=== PATIENT | female | born 1985 ===

== ENCOUNTER 2017-03-10 12:09 | Inpatient (IN) | payer MEDICAID ==
[2017-03-10] VITALS (9 sets, daily range): BP systolic 86–117; BP diastolic 59–72; PULSE 120–144; RESP 15–26; O2SAT 96–100
[~2017-03-10] VITALS: Ht 160 cm; Wt 55.3 kg
--- NOTE | 2017-03-10 12:56 | ED.REPORT ---
HPI-Abd Pain F Under 40 Date of Service March 10, 2017 ED Provider: Trip nKox DO 31 year old female with a history of ulcerative colitis presents to the ER complaining of three days of acute on chronic abdominal pain. Symptoms are described as waxing and waning sharp pain. Associates symptoms include diarrhea with jim blood, nausea, vomiting, fatigue, and generalized weakness. Colonoscopy a month ago revealed early colon cancer. She has a follow-up appointment scheduled for 03/17. Nursing Notes Stated Complaint: ABD PAIN,CHILLS Chief Complaint: Female Abdominal Pain Nursing Notes Reviewed: Yes Allergies: Coded Allergies: ibuprofen (Verified Allergy, Severe, Anaphylaxis, 03/10/17) diphenhydramine (Verified Allergy, Intermediate, restless legs, 03/10/17) promethazine (Verified Adverse Reaction, Intermediate, ANXIETY, RESTLESS LEG, 03/10/17) Scheduled Amoxicillin (Amoxicillin) 500 Mg Tablet 500 MG PO TID Azathioprine (Imuran) 50 Mg Tablet 100 MG PO QAM Omeprazole (Omeprazole) 20 Mg Capsule.dr 20 MG PO QAM Scheduled PRN Acetaminophen (Acetaminophen) 500 Mg Tablet 500 MG PO Q6H PRN PRN For Fever Albuterol HFA (Proair HFA) 8.5 Gm Hfa.aer.ad 2 PUFFS INHALATION Q4H PRN PRN For Shortness of Breath Dicyclomine (Dicyclomine) 20 Mg Tablet 40 MG PO QID PRN PRN For GI Cramps Loratadine (Claritin) 10 Mg Capsule 10 MG PO DAILY PRN PRN ALLERGIES General Time Seen by MD: 12:55 Chief Complaint Abdominal pain Hx Obtained From: Patient Arrived By: Walk-in Sudden in Onset?: No Onset Occurred: 3 days ago Symptom Duration: Since onset Location: : Diffuse Quality: Sharp Radiation: : Does not radiate Severity: Current: Moderate Severity: Maximum: Severe Associated with: Reports: Diarrhea, Hematochezia, Nausea, Vomiting Recent Healthcare: Recent doctor visit Similar Sx Previous: Yes Past Medical History Past Medical History Ulcerative colitis Reports: Cancer (early colon cancer) Smoking History Unknown if Ever Smoker Ambulatory Status Independent Review of Systems Constitutional: Reports: Fatigue, Weakness - generalized, Denies: Chills, Fever Respiratory: Denies: Non-productive cough GI: Reports: Abdominal pain, Bloody/tarry stool, Diarrhea, Hematochezia, Nausea , Vomiting, Denies: Hematemesis, Melena Female: Denies: Dysuria Complete sys rev & neg: except as marked. Physical Exam Initial Vital Signs Vital Signs (First) Date Time Temp Pulse Resp B/P Pulse Ox O2 Delivery O2 Flow Rate FiO2 03/10/17 12:14 38.2 144 15 86/61 96 Room Air Initial VS: Reviewed Head / Eyes: Atraumatic, Normocephalic, PERRL Neck: Supple, Non-tender, Full range of motion Extremities: Vascular intact, Neuro intact, No swelling, No tenderness Skin: Warm, Dry, No cyanosis Neurologic: Alert, Oriented, Nonfocal General/Constitutional: Awake, Alert, Well developed Respiratory / Chest: Breath sounds NL, Breath sounds = bilat, No respiratory distress, No rales, No rhonchi, No wheezing Cardiovascular: Regular rhythm, No murmurs Heart Rate / Rhythm: Positive: Tachycardia Abdomen: Soft, No guarding, No rebound Tenderness/Guarding/Rebound: Positive: Tender diffuse Back: Inspection NL, Non-tender, No CVA tenderness Interpretation & Diagnostics Lab Results Interpretation Result Diagram: 03/10/17 1254 03/10/17 1254 Test 03/10/17 12:54 03/10/17 16:27 White Blood Count 5.9th/mm3 (3.8-10.1) Red Blood Count 4.62mil/mm3 (3.90-5.20) Hemoglobin 13.2g/dL (12.0-15.6) Hematocrit 39.8% (35.0-46.0) Mean Corpuscular Volume 86.1fL (81-100) Mean Corpuscular Hemoglobin 28.6pg (27.0-35.0) Mean Corpuscular Hemoglobin Concent 33.2% (32.0-37.0) Red Cell Distribution Width 15.8% (12.3-15.4) Platelet Count 581bil/L (150-400) Neutrophils (%) (Auto) 75.2% (40-74) Lymphocytes (%) (Auto) 14.5% (14-46) Monocytes (%) (Auto) 7.5% (4-12) Eosinophils (%) (Auto) 2.1% (0-5) Basophils (%) (Auto) 0.5% (0-3) Sodium Level 130mEq/L (134-144) Potassium Level 3.5mEq/L (3.5-5.2) Chloride Level 97mEq/L (97-108) Carbon Dioxide Level 15mmol/L (18-29) Blood Urea Nitrogen 8mg/dL (6-20) Creatinine 0.74mg/dL (0.57-1.00) Estimat Glomerular Filtration Rate 131mL/min (>59) Glucose Level 130mg/dL (60-99) Lactic Acid Level 1.0mmol/L (0.4-2.0) Calcium Level 9.0mg/dL (8.5-10.1) Magnesium Level 1.9mg/dL (1.6-2.6) Total Bilirubin 0.2mg/dL (0.0-1.2) Aspartate Amino Transf (AST/SGOT) 20U/L (0-50) Alanine Aminotransferase (ALT/SGPT) 14U/L (0-32) Alkaline Phosphatase 180U/L (25-150) Troponin T < 0.010ug/L (0.0-0.011) Total Protein 8.7g/dL (6.4-8.4) Albumin 3.7g/dL (3.4-5.0) Lipase 10U/L (13-60) Thyroid Stimulating Hormone (TSH) 0.319uIU/mL (0.450-4.500) ECG Interpretation ECG Interpretation: Sinus tachycardia, rate 123 Time: 13:36 Interpreted by: ED physician X-Ray Chest Interpretation Chest Xray Interpretation: IMPRESSION: 1. No acute cardiopulmonary disease process. 2. Nodule projecting over the left lung base likely represents nipple shadow. Recommend standard 2 view of the chest when clinically feasible. Dictated by: Myriam Salguero MD, PhD on 03/10/2017 at 13:27 Approved by: Myriam Salguero MD, PhD on 03/10/2017 at 13:28 View: Portable, 1 view Interpretation / Wet Read by: Interpret - Radiologist CT Abd / Pelvis Interpretation IMPRESSION: 1. Diffuse thickening of the wall of the entire colon with mild surrounding inflammation and fluid contained within the colon is suspicious for colitis. There is also thickening of the terminal ileum wall. These findings are concerning for a possible inflammatory bowel process, such as ulcerative colitis or Crohn's disease. However, clinical correlation to exclude infectious colitis such as pseudomembranous colitis is recommended. 2. No bowel obstruction. 3. Left adnexal/ovarian cyst. Please consider followup pelvic ultrasound in 2-3 months. 4. Numerous subcentimeter retroperitoneal and mesenteric lymph nodes are likely reactive to the infectious/inflammatory process of the bowel. 4. Cholelithiasis. 5. Nonspecific intrahepatic biliary dilatation. This may be further evaluated better with MRCP. Dictated by: Pepe Smith M.D. on 03/10/2017 at 13:08 Approved by: Pepe Smith M.D. on 03/10/2017 at 13:25 Study type: Abdominal CT IV contrast, Abdom CT oral contrast Interpretation / Wet Read by: Interpret - Radiologist Re-Eval/Medical Decision Med Decision/Clinical Course Med Decision/Clinical Course: Septic by parameters with east colitis on CAT scan, broad-spectrum antibiotics initiated. PCR is pending. I spoke with both the on-call gas released at [facility] and the patient's gastrologist who both agree with the plan as above. Patient will be admitted. Re-Evaluation/Progress : Time of Eval: 15:02 Re-Evaluation/Progress Note: Discussed lab and imaging results and need for admission. Patient is amenable to the plan. All other questions addressed. Consultation #1: Referral / Consult Name: Yolanda Mcfarlane MD Consulted With: On-call physician (GI) Call Returned at: 14:53 Consultation #2: Call Returned at: 15:17 Note: Discussed patient case with Dr. Verma, GI. Rule-out c. diff prior to steroids. Don't increase steroids until infection is ruled out. 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 Bradley inquired about blood culture, which was already done. Counseled Regarding: Diagnosis, Lab results, Need for admission Discharge & Departure Primary Impression: Sepsis Additional Impression: Ulcerative colitis Disposition: ADMITTED TO HOSPITAL Discharge Condition All VS Reviewed: Yes Condition: Stable Scribe Attestation Portions of this note were transcribed by [place] Vivas. I, Dr. Knox, personally performed the history, physical exam and medical decision-making; I reviewed and confirmed the accuracy of the information in the transcribed note. Signed by: Arvind Hood, 03/10/2017 and 15:38 Trip Knox DO March 10, 2017 12:56 MONTANA VIVAS March 10, 2017 13:03 Spring Mendoza March 10, 2017 16:46
[2017-03-10] MEDS ORDERED: 0.9% Sodium Chloride 1,000 ML IV ONE ×3 (12:59→14:50)
[2017-03-10 13:07] LABS: BASOPHILS % (AUTO) 0.5 % (0-3); EOSINOPHILS % (AUTO) 2.1 % (0-5); MONOCYTES % (AUTO) 7.5 % (4-12); Mean Corpuscular Hemoglobin 28.6 pg (27.0-35.0); Mean Corpuscular Volume 86.1 fL (81-100); NEUTROPHILS % (AUTO) 75.2 % (40-74); Platelet Count 581 bil/L (150-400)
--- NOTE | 2017-03-10 13:29 | DRSVH ---
PROCEDURE: X-RAY CHEST ONE VIEW, PORTABLE ([id number]) INDICATIONS: vomiting, fever, tachycardia TECHNIQUE: One view of the chest was acquired. COMPARISON: None. FINDINGS: Surgical changes and devices: None. Lungs and pleura: No pleural effusions or pneumothorax. Lungs are clear of acute opacities. Nodular density projects over the left lung base likely represents a nipple shadow; recommend standard 2 vie w chest when clinically feasible.. Mediastinum: Mediastinal contours appear normal. Heart size is normal. Bones and chest wall: No suspicious bony lesions. Overlying soft tissues appear unremarkable. IMPRESSION: 1. No acute cardiopulmonary disease process. 2. Nodule projecting over the left lung base likely represents nipple shadow. Recommend standard 2 vi ew of the chest when clinically feasible. Dictated by: Myriam Salguero MD, PhD on 03/10/2017 at 13:27 Approved by: Myriam Salguero MD, PhD on 03/10/2017 at 13:28
[2017-03-10 13:31] LABS: TROPONIN T < 0.010 ug/L (0.0-0.011)
[2017-03-10 13:37] LABS: Lipase 10 U/L (13-60); Magnesium 1.9 mg/dL (1.6-2.6)
[2017-03-10] MEDS ORDERED: Ondansetron 2 mg/mL 2 mL Inj IVPUSH PRN ×2 (13:40→15:45)
[2017-03-10] MEDS: HYDROmorphone 1 mg/mL Inj IVPUSH PRN ×2 (13:47→17:45)
--- NOTE | 2017-03-10 14:26 | DRSVH ---
PROCEDURE: CT ABDOMEN AND PELVIS WITH CONTRAST ([id number]) INDICATIONS: abd pain, fever, UC TECHNIQUE: After the administration of oral and intravenous contrast, 5 mm thick sections acquired from the diap hragms to the symphysis. 5 mm thick coronal and sagittal reformats were performed. For radiation do se reduction, the following was used: automated exposure control, adjustment of mA and/or kV accordi ng to patient size. COMPARISON: None. FINDINGS: Image quality: Diagnostic ABDOMEN: Lung bases: Lung bases are clear. Heart size is normal. Solid organs: The spleen appears to be absent. Mild intrahepatic biliary dilatation is present. The re is a single calcified gallstone evident within the dependent aspect of the gallbladder. No defini te dilatation of the common bile duct is appreciated. No focal liver lesions are evident. The main portal vein is slightly prominent in size without intraluminal thrombus. The adrenals, pancreas, and kidneys are within normal limits. Peritoneum and bowel: The stomach, duodenum, and remainder of the small bowel loops are nondilated. The proximal colon is fluid-filled, which is unusual. There is moderate thickening of the wall of th e ascending, transverse, and descending colon. Mild edema/inflammation within the adjacent mesentery is incidentally noted. No complete bowel obstruction is identified. Thickening of the terminal ile um wall appears to be present, as well. There is no free fluid, loculated fluid collection or free a ir. Nodes and vessels: Numerous subcentimeter mesenteric and retroperitoneal lymph nodes are incidentally noted. No jim lymphadenopathy is identified. Aorta and inferior vena cava are normal in caliber. Bones: No suspicious osseous lesions or acute fractures are evident. There is straightening of the n ormal lumbar lordosis. PELVIS: Genitourinary: Bladder wall thickness is normal. There is a complex left adnexal cyst identified th at measures up to approximately 3.7 cm in diameter (image 70, series 2). The uterus is not enlarged. Miscellaneous: No inguinal hernias or adenopathy. No free fluid or loculated fluid collection is ev ident. Bones: No suspicious bony lesions. No acute pelvic fractures. IMPRESSION: 1. Diffuse thickening of the wall of the entire colon with mild surrounding inflammation and fluid c ontained within the colon is suspicious for colitis. There is also thickening of the terminal ileum wall. These findings are concerning for a possible inflammatory bowel process, such as ulcerative co litis or Crohn's disease. However, clinical correlation to exclude infectious colitis such as pseudo membranous colitis is recommended. 2. No bowel obstruction. 3. Left adnexal/ovarian cyst. Please consider followup pelvic ultrasound in 2-3 months. 4. Numerous subcentimeter retroperitoneal and mesenteric lymph nodes are likely reactive to the infe ctious/inflammatory process of the bowel. 4. Cholelithiasis. 5. Nonspecific intrahepatic biliary dilatation. This may be further evaluated better with MRCP. Dictated by: Pepe Smith M.D. on 03/10/2017 at 13:08 Approved by: Pepe Smith M.D. on 03/10/2017 at 13:25
[2017-03-10] MEDS ORDERED: Piperacillin-Tazo 3.375 Gm Inj 3.375 GM in Dextrose 5% Minibag Plus 50 ML IV ONE (14:55)
[2017-03-10] MEDS ORDERED: Vancomycin 250 mg Oral Capsule PO ONE (14:55)
[2017-03-10] MEDS ORDERED: 0.9% Sodium Chloride 1,000 ML IV SCH (15:41)
[2017-03-10] MEDS ORDERED: Alum-Mag Hydrox-Simeth 30 mL Suspension PO PRN (15:45)
[2017-03-10] MEDS ORDERED: ALBU8.5H2 INHALATION (16:31)
[2017-03-10] MEDS ORDERED: AZAT50TA6 PO (16:31)
[2017-03-10] MEDS ORDERED: ACET-171 PO (16:31)
[2017-03-10] MEDS ORDERED: DICY20TA10 PO (16:31)
[2017-03-10] MEDS ORDERED: OMEP40CA36 PO (16:31)
[2017-03-10] MEDS ORDERED: AMOX500T2 PO (16:31)
[2017-03-10] MEDS ORDERED: LORA10CA PO (16:36)
[2017-03-10] MEDS ORDERED: OMEP20CA11 PO (16:37)
[2017-03-10 17:12] LABS: APPEARANCE,URINE CLEAR (CLEAR,HAZY); COLOR,URINE YELLOW (YELLOW); OCCULT BLOOD,URINE NEGATIVE (NEGATIVE); PH,URINE 5.5 (5.0-8.0); UROBILINOGEN,URINE NORMAL (NORMAL)
[2017-03-10] MEDS ORDERED: Polyethylene Glycol (PEG) 17 Gm Powder PO PRN (17:55)
[2017-03-10] MEDS: 0.9% Sodium Chloride 1,000 ML IV SCH (17:58)
--- NOTE | 2017-03-10 17:59 | NUR ---
admit pt brought to [facility] from ED. pt complains of ABD pain 7/10 and nausea. Dilaudid and Zofran given. NS and tele started per doc orders.
--- NOTE | 2017-03-10 18:33 | PCM.HPMED ---
Subjective Date of Service March 10, 2017 Primary Provider: Admitting Physician: Brigid Bradley DO Primary Care Physician: [facility] Jazzy Lance Attending Physician: Brigid Bradley DO Admit Status: From the Emergency Department, Full Admit, Admit to Yellow Team, Non-Telemetry Chief Complaint: Rectal bleeding and diarrhea History of Present Illness: This is a 31-year-old female with a very long history of ulcerative colitis diagnosed around age 10 per her report. She presents now with about a week long history of diarrhea. This is in context of several family members having nausea vomiting diarrhea. Less today she has had intermittent rectal bleeding which is now improved in her stool continues to be liquid but is now brown. No fevers or chills. A fair amount of mid epigastric cramping. Some vomiting yesterday. She does feel quite dehydrated, thirsty, and weak. She denies any hematemesis. She was started on Imuran as a new medication about 10 days ago. No history of rectal bleeding. A colonoscopy at [facility] in December indicated some dysplasia and she does have a pending appointment with surgery to talk about options. She is lying depleted with a hypovolemic hyponatremia as well as a metabolic acidosis. Her hematocrit is reasonably normal although she is likely hemoconcentrated. She also has a history of primary sclerosing cholangitis. She also notes a long history of asthma with some recent dyspnea and cough. She does use albuterol when necessary request this now. Review of Systems: No headache visual changes rhinorrhea cough or sore throat. She has had intermittent fevers for last 2 days. Blood cultures were drawn and pending a chest x-ray was negative. She denies any hematuria or dysuria. The ED physician did discuss the case with gastroenterology who recommended no steroids and antibiotics as well as stool PCR. She denies skin rash or lesions. Also reviewed and otherwise negative except as noted in history of present illness Allergies Coded Allergies: ibuprofen (Verified Allergy, Severe, Anaphylaxis, 03/10/17) diphenhydramine (Verified Allergy, Intermediate, restless legs, 03/10/17) promethazine (Verified Adverse Reaction, Intermediate, ANXIETY, RESTLESS LEG, 03/10/17) Home Medications Amoxicillin (Amoxicillin) 500 Mg Tablet 500 MG PO TID Azathioprine (Imuran) 50 Mg Tablet 100 MG PO QAM Omeprazole (Omeprazole) 20 Mg Capsule.dr 20 MG PO QAM Scheduled PRN Acetaminophen (Acetaminophen) 500 Mg Tablet 500 MG PO Q6H PRN PRN For Fever Albuterol HFA (Proair HFA) 8.5 Gm Hfa.aer.ad 2 PUFFS INHALATION Q4H PRN PRN For Shortness of Breath Dicyclomine (Dicyclomine) 20 Mg Tablet 40 MG PO QID PRN PRN For GI Cramps Loratadine (Claritin) 10 Mg Capsule 10 MG PO DAILY PRN PRN ALLERGIES PMH 1. Ulcerative colitis 2. Primary sclerosing cholangitis 3. Asthma Surgical History Colonoscopy Family History Negative for ulcerative colitis Social History Hx Alcohol Use: Yes Hx Substance Use: Yes Hx Tobacco Use: Yes Smoking Status: Current Every Day Smoker, Unknown if Ever Smoker Living Arrangement: with Family Exam Vital Signs Vital Sign - Last Date Time Temp Pulse Resp B/P Pulse Ox O2 Delivery O2 Flow Rate FiO2 03/10/17 17:45 139 03/10/17 17:38 37.8 18 111/64 Room Air 03/10/17 17:10 97 Exam Oriented 3. No distress. Fluent speech. Normal affect. Normal skull. Normal nose and ears. Anicteric sclera, symmetric pupils Oropharynx is unremarkable for being dry., no facial droop. Neck is supple, normal thyroid. No adenopathy. Lungs are clear, normal effort rate. Heart is regular without murmur gallop or rub. Abdomen soft, nondistended or tender. Extremities are free of pedal edema. Good radial and pedal pulses. Skin is free of rash, lesions. No petechiae or ecchymosis. Joints are grossly normal. Cranial nerves are grossly normal. Motor strength is normal in all extremities. Normal muscular tone. Thready rapid pulse, diminished skin turgor. She also has dry oral mucosa. Lab and Diagnostics Result Diagram: 03/10/17 1254 03/10/17 1254 X-Rays, CTs and MRIs Chest x-ray is unremarkable except for a left base nodule. CT of the abdomen and pelvis: IMPRESSION: 1. Diffuse thickening of the wall of the entire colon with mild surrounding inflammation and fluid contained within the colon is suspicious for colitis. There is also thickening of the terminal ileum wall. These findings are concerning for a possible inflammatory bowel process, such as ulcerative colitis or Crohn's disease. However, clinical correlation to exclude infectious colitis such as pseudomembranous colitis is recommended. 2. No bowel obstruction. 3. Left adnexal/ovarian cyst. Please consider followup pelvic ultrasound in 2- 3 months. 4. Numerous subcentimeter retroperitoneal and mesenteric lymph nodes are likely reactive to the infectious/inflammatory process of the bowel. 4. Cholelithiasis. 5. Nonspecific intrahepatic biliary dilatation. This may be further evaluated better with MRCP. Dictated by: Pepe Smith M.D. on 03/10/2017 at 13:08 Approved by: Pepe Smith M.D. on 03/10/2017 at 13:25 Assessment & Plan 1. Diarrhea with evidence of diffuse pancolitis, POA. The plan is empiric antibiotics, Zosyn as well as a stool PCR. 2. Volume depletion, POA. Resuscitation with saline 3. Hypovolemic hyponatremia, POA. IV fluids 4. Metabolic acidosis, POA. Lactic acid is normal. IV fluids and follow. 5. Chronic ulcerative colitis, POA. The plan is as above. GI consultation was initiated in the emergency department. 6. Remote history of methamphetamine abuse, inhalation. Remote history of alcohol abuse, none currently. 7. Primary sclerosing cholangitis, POA. Follow clinically. She is full resuscitation Inpatient status with estimated length of stay of over 2 nights. Pain Evaluation: Adequate Pain Control Resuscitation Status: CPR: Attempt Resuscitation Time spent 45 minutes Donovan Brooks MD March 10, 2017 18:33
[2017-03-10] MEDS: Albuterol 2.5 mg/3 mL Inhalation Solution NEB PRN (20:09)
[2017-03-10] MEDS: HYDROmorphone 0.5 mg/0.5 mL iSecure Syringe IVPUSH PRN (21:46)
[2017-03-10] MEDS: Ondansetron 2 mg/mL 2 mL Inj IVPUSH PRN (21:46)
--- NOTE | 2017-03-10 22:35 | NUR ---
Positive Micro Result/Heart rate Patient's stool PCR resulted positive for Rotavirus. MD paged, new order to place on enteric precautions. Informed MD of patient's heart rate 120-140's, MD was aware and inquired about fluid rate (NS@100 ml/hr) and said to continue the fluids, monitor heart rate. Patient is on telemetry. Will give patient PRN Tylenol for 37.6C temperature.
[2017-03-11] VITALS (10 sets, daily range): BP systolic 96–109; BP diastolic 56–67; PULSE 102–116; RESP 16–18; O2SAT 94–98
[2017-03-11] MEDS: Ondansetron 2 mg/mL 2 mL Inj IVPUSH PRN ×5 (00:24→21:11)
[2017-03-11] MEDS: Piperacillin-Tazo 3.375 Gm Inj 3.375 GM in Dextrose 5% Minibag Plus 50 ML IV SCH ×3 (00:29→16:01)
[2017-03-11] MEDS: Heparin 5,000 Unit/mL Inj SUBQ SCH ×4 (00:29→16:01)
[2017-03-11] MEDS: 0.9% Sodium Chloride 1,000 ML IV SCH ×3 (03:58→23:57)
[2017-03-11] MEDS: HYDROmorphone 0.5 mg/0.5 mL iSecure Syringe IVPUSH PRN ×8 (04:04→23:57)
[2017-03-11] MEDS: Albuterol 2.5 mg/3 mL Inhalation Solution NEB PRN ×2 (04:07→21:25)
[2017-03-11 06:13] LABS: BASOPHILS % (AUTO) 0.4 % (0-3); EOSINOPHILS % (AUTO) 4.1 % (0-5); MONOCYTES % (AUTO) 9.7 % (4-12); Mean Corpuscular Hemoglobin 28.5 pg (27.0-35.0); Mean Corpuscular Volume 86.9 fL (81-100); NEUTROPHILS % (AUTO) 58.9 % (40-74); Platelet Count 541 bil/L (150-400)
--- NOTE | 2017-03-11 09:21 | NUR ---
SW- Screening Note Data: Pt is a 31 y/o female admitted 03/10/17 for ulcerative colitis flair, sepsis. Per H&P. Pt's insurance is [facility] Medicaid and PCP is [facility]. EMR reviewed. Pt's readmit risk score is 2 - no risk. SW met with pt at bedside to discuss discharge plan. Pt resides at home in [place] with her boyfriend and his family. She is independent with ADL's and does not drive. Pt has not completed DPOA/Advanced Care Directive paperwork and SW provided info to review and complete. Pt acknowledged she is a regular smoker and SW offered resources on smoking cessation, pt accepted. Pt has history of methamphetamine and alcohol use but denies current use. Pt likely to discharge home via boyfriend when medically stable. No needs assessed. SW will continue to follow for needs. Assessment: Pt who is independent at baseline Plan: Pt likely to discharge home via POV when medically ready, no needs assessed. SW will continue to follow. [facility]
[2017-03-11] MEDS ORDERED: Potassium Chloride 20 mEq SR Tablet PO ONE (09:40)
--- NOTE | 2017-03-11 15:03 | PCM.CHPMED ---
Subjective Date of Service: March 11, 2017 Primary Physician: Admitting Physician: Donovan Brooks MD Primary Care Physician: [facility] Attending Physician: Brigid Bradley DO Chief Complaint: Chief Complaint: Rectal bleeding with nausea and vomiting History of Present Illness: 31-year-old female who was diagnosed with ulcerative colitis while a teenager with history of it being treated with intermittent prednisone and mesalamine who was recently started on azathioprine by her music professionals at the [facility] Dr Verma. She also reports that she has early colon cancer and has been scheduled to see colorectal surgery at the [facility]. She reportS that she has been in her usual state of health up until day of admission when she began having non bloody diarrhea and worsening of chronic abdominal pain. In the ER she tachycardic and hypotensive and therefore admitted to the hospital. She was started empirically on broad spectrum antibiotics and cultured. Stool studies were positive for rotavirus. Blood cultures are pending. Since admission she states she feels better, but still with watery diarrhea and abdominal pain that is more than here chronic abdominal pain. She states that all the kids that family have been sick with diarrhea. Patient states that the pain that she has had in her belly is consistent with her ulcerative colitis. Patient says that her symptoms have improved although there is still diarrhea.. Patient was seen to be tachycardic with borderline hypotension in the emergency department but this seems to have resolved with fluid resuscitation. Patient is usually seen at [facility] in [place] with her GI doctor, Dr. Verma, caring for her there. Patient's labs are reviewed currently no leukocytosis although there is a mild drop in the patient's hemoglobin; patient was hyponatremic this is resolved as currently hypokalemic. TSH is low at 0.319. Patient has a mild elevation alkaline phosphatase that resolved today Review of Systems: See history of present illness PMH Past Medical History Ulcerative colitis sclerosing cholangitis Asthma Hx Any Other Health Problems?: YesHx Diabetes: No Surgical History Colonoscopy Home Medications Imuran 100 mg by mouth every morning Dicyclomine 20 mg by mouth 4 times a day when necessary Loratadine 10 mg by mouth daily when necessary Allergies: Coded Allergies: ibuprofen (Verified Allergy, Severe, Anaphylaxis, 03/10/17) diphenhydramine (Verified Allergy, Intermediate, restless legs, 03/10/17) promethazine (Verified Adverse Reaction, Intermediate, ANXIETY, RESTLESS LEG, 03/10/17) Social History Hx Alcohol Use: NoHx Substance Use: NoHx Tobacco Use: Yes Smoking Status: Current Every Day Smoker Unknown if Ever Smoker Living Arrangement: with Family Exam Vital Signs Vital Sign - Last Date Time Temp Pulse Resp B/P Pulse Ox O2 Delivery O2 Flow Rate FiO2 03/11/17 13:56 36.6 102 16 102/66 96 Room Air Intake and Output 03/10/17 03/10/17 03/11/17 Cumulative From/Thru 15:00 23:00 07:00 03/10/17 12:14 - 03/11/17 04:56 Intake Total 3000 ml 1788 ml 4788 ml Balance 3000 ml 1788 ml 4788 ml Intake Oral 750 ml 750 ml IV Total 3000 ml 1038 ml 4038 ml # Voids 2 2 # Bowel Movements 3 3 General: Alert, Oriented X3, No Acute Distress Mouth: Mucous Membr Moist/[place] Chest & Lungs: Chest Wall Normal, Clear to auscultation & percussion Cardiovascular: Exam Unremarkable, Regular Rate/Rhythm Abdomen: Tender (mild epigastric), Non-distended Extremities: No cyanosis/clubbing/edma bilat Neurological: Grossly Neurologically Intact Lab and Diagnostics Result Diagram: 03/11/17 0550 03/11/17 0550 Assessment & Plan Assessment 31-year-old female history of ulcerative colitis presented with some mild hematochezia and a small decrease in her hemoglobin that could be explained with fluid resuscitation. Patient states her nausea and vomiting are gone but she still has low-grade diarrhea with possible low amounts of hematochezia. Imuran currently on hold. PCR of the stool showed rotavirus which helps explain this episode, especially since on many of her close contacts also have diarrhea. Patient is currently on Zosyn and we await the blood culture results. As the patient has improved and we have an identified source for the diarrhea, should the blood cultures returned negative recommend restarting Imuran. From a GI standpoint, once the patient feels she is ready to leave she can follow-up with her GI specialist in [place]. Thank you for allowing us to participate in the care of this patient Problems: Pain Evaluation: Adequate Pain Control Resuscitation Status: CPR: Attempt Resuscitation Attending Statement Pt seen and examined agree with broad spectrum antibiotics until blood cultures are negative continue supportive care with IV fluids and clear liquids as tolerated. restart azathioprine once cultures negative. I believe the changes seen in CT are likely present for sometime as she reports recently starting medications for UC and prior to that not continuously taking any meds for treatment. she needs to keep appointment with surgery in [place] and follow up with her GI MD at [place]. Dewayne Huang DO March 11, 2017 15:03 Yolanda Mcfarlane MD March 11, 2017 16:26
[2017-03-11] MEDS ORDERED: Pantoprazole 20 mg ER24 Tablet PO ONE (19:45)
[2017-03-11] MEDS: Pantoprazole 20 mg ER24 Tablet PO SCH (19:55)
--- NOTE | 2017-03-11 22:39 | PCM.PNMED ---
Subjective Date of Service March 11, 2017 Subjective The patient states that her pain is much better she describes it as a generic over her umbilicus pain. Tolerating diet. She states she has had several bowel movements today. 2 of her children had diarrhea and she feels that is how she got it. Exam Vital Signs Vital Sign - Last Date Time Temp Pulse Resp B/P Pulse Ox O2 Delivery O2 Flow Rate FiO2 03/11/17 04:56 36.6 105 16 96/59 96 Room Air Intake and Output 03/10/17 03/10/17 03/11/17 Cumulative From/Thru 15:00 23:00 07:00 03/10/17 12:14 - 03/11/17 04:56 Intake Total 3000 ml 1788 ml 4788 ml Balance 3000 ml 1788 ml 4788 ml Intake Oral 750 ml 750 ml IV Total 3000 ml 1038 ml 4038 ml # Voids 2 2 # Bowel Movements 3 3 Exam Gen.: No acute distress sitting up in bed HEENT: Normocephalic, atraumatic Heart: Regular rate and rhythm no S3-S4 sounds Lungs: Clear to auscultation no crackles or wheezes Abdomen: Nondistended soft, normal bowel sounds, very mild central tenderness over the lower quadrants and also periumbilical Extremities: Negative edema Psych: Negative for anxiety Neuro: No focal deficits IVs and Medications IV Fluids 100 mL per hour normal saline Medications Reviewed: Medications were reviewed in detail Lab and Diagnostics Result Diagram: 03/11/17 0550 03/10/17 1254 X-Rays, CTs and MRIs Chest x-ray is unremarkable except for a left base nodule. CT of the abdomen and pelvis: IMPRESSION: 1. Diffuse thickening of the wall of the entire colon with mild surrounding inflammation and fluid contained within the colon is suspicious for colitis. There is also thickening of the terminal ileum wall. These findings are concerning for a possible inflammatory bowel process, such as ulcerative colitis or Crohn's disease. However, clinical correlation to exclude infectious colitis such as pseudomembranous colitis is recommended. 2. No bowel obstruction. 3. Left adnexal/ovarian cyst. Please consider followup pelvic ultrasound in 2- 3 months. 4. Numerous subcentimeter retroperitoneal and mesenteric lymph nodes are likely reactive to the infectious/inflammatory process of the bowel. 4. Cholelithiasis. 5. Nonspecific intrahepatic biliary dilatation. This may be further evaluated better with MRCP. Dictated by: Pepe Smith M.D. on 03/10/2017 at 13:08 Approved by: Pepe Smith M.D. on 03/10/2017 at 13:25 Assessment & Plan 1. Diarrhea with evidence of diffuse pancolitis, POA. The plan is empiric antibiotics, Zosyn as well as a stool PCR. -- Stool PCR showed rotavirus as the cause of her diarrhea -- Conservative symptomatic treatment -- Continue IV fluids 2. Volume depletion, POA. Resuscitation with saline: We will continue IV fluids 3. Hypovolemic hyponatremia, POA. We will continue IV fluids 4. Metabolic acidosis, POA. Lactic acid is normal. IV fluids and follow. 5. Chronic ulcerative colitis, POA. The plan is as above. GI consultation was initiated in the emergency department. They recommended no steroids, they recommended Zosyn until blood cultures and negative. Hold Imuran until blood cultures are negative 6. Remote history of methamphetamine abuse, inhalation. Remote history of alcohol abuse, none currently. 7. Primary sclerosing cholangitis, POA. Follow clinically.: Her home medication Imuran was restarted 8. GERD: Medication omeprazole replaced by pantoprazole 9. Allergies: Loratadine home medications She is full resuscitation Inpatient status with estimated length of stay of over 2 nights. Pain Evaluation: Adequate Pain Control Resuscitation Status: CPR: Attempt Resuscitation Time spent 25 minutes Yarelis Estes DO March 11, 2017 06:43
[2017-03-12] VITALS (7 sets, daily range): BP systolic 103–110; BP diastolic 64–73; PULSE 95–111; RESP 16–20; O2SAT 94–98
[2017-03-12] MEDS: Piperacillin-Tazo 3.375 Gm Inj 3.375 GM in Dextrose 5% Minibag Plus 50 ML IV SCH ×3 (00:30→16:04)
[2017-03-12] MEDS: Heparin 5,000 Unit/mL Inj SUBQ SCH ×3 (00:30→15:54)
[2017-03-12] MEDS: Ondansetron 2 mg/mL 2 mL Inj IVPUSH PRN ×4 (03:50→21:25)
[2017-03-12] MEDS: HYDROmorphone 0.5 mg/0.5 mL iSecure Syringe IVPUSH PRN ×3 (03:50→09:48)
--- NOTE | 2017-03-12 04:04 | NUR ---
PO intake Patient ate mashed potatoes that her visitor brought in around HS. Reported to be tolerating solids well, but then reported around midnight that she threw up some of her dinner. Encouraged patient to take it slow with PO intake-agreeable.
[2017-03-12 07:02] LABS: Magnesium 1.9 mg/dL (1.6-2.6)
[2017-03-12] MEDS: Pantoprazole 20 mg ER24 Tablet PO SCH (07:31)
[2017-03-12] MEDS: 0.9% Sodium Chloride 1,000 ML IV SCH ×2 (09:43→20:59)
--- NOTE | 2017-03-12 11:54 | PCM.PNMED ---
Subjective Date of Service March 12, 2017 Subjective Patient states that she was given amoxicillin for dental infection. She took 4 doses, does not know what the total courses. States she had diarrhea 5 or 6 times. She sees little blood spots mostly green. Dizziness is better but pain is shifted from RU Q/epigastrium to also lower abdomen. No urinary sxs. one time fever last night at 8pm. Later in the day she complains of more blood in her stool but nothing that felt that particularly filled up the toilet. States that she feels like how she feels when she gets the flareups of UC Exam Vital Signs Vital Sign - Last Date Time Temp Pulse Resp B/P Pulse Ox O2 Delivery O2 Flow Rate FiO2 03/12/17 08:52 37.0 103 18 106/71 97 Room Air Intake and Output 03/11/17 03/11/17 03/12/17 Cumulative From/Thru 14:59 22:59 06:59 03/10/17 12:14 - 03/12/17 03:53 Intake Total 3682 ml 918 ml 9388 ml Output Total 3500 ml 3500 ml Balance 182 ml 918 ml 5888 ml Intake Oral 2250 ml 3000 ml IV Total 1432 ml 918 ml 6388 ml Output Urine Total 500 ml 500 ml Stool Total 3000 ml 3000 ml # Voids 2 # Bowel Movements 3 Exam Gen.: No acute distress sitting up in bed HEENT: Normocephalic, atraumatic Heart: Regular rate and rhythm no S3-S4 sounds Lungs: Clear to auscultation no crackles or wheezes Abdomen: Nondistended soft, normal bowel sounds, very mild central tenderness over the lower quadrants and also periumbilical Extremities: Negative edema Psych: Negative for anxiety Neuro: No focal deficits IVs and Medications IV Fluids Normal 100 mL/h Medications Reviewed: Medications were reviewed in detail Lab and Diagnostics Result Diagram: 03/11/17 0550 03/12/17 0607 X-Rays, CTs and MRIs Chest x-ray is unremarkable except for a left base nodule. CT of the abdomen and pelvis: IMPRESSION: 1. Diffuse thickening of the wall of the entire colon with mild surrounding inflammation and fluid contained within the colon is suspicious for colitis. There is also thickening of the terminal ileum wall. These findings are concerning for a possible inflammatory bowel process, such as ulcerative colitis or Crohn's disease. However, clinical correlation to exclude infectious colitis such as pseudomembranous colitis is recommended. 2. No bowel obstruction. 3. Left adnexal/ovarian cyst. Please consider followup pelvic ultrasound in 2- 3 months. 4. Numerous subcentimeter retroperitoneal and mesenteric lymph nodes are likely reactive to the infectious/inflammatory process of the bowel. 4. Cholelithiasis. 5. Nonspecific intrahepatic biliary dilatation. This may be further evaluated better with MRCP. Dictated by: Pepe Smith M.D. on 03/10/2017 at 13:08 Approved by: Pepe Smith M.D. on 03/10/2017 at 13:25 Assessment & Plan 1. Diarrhea with evidence of diffuse pancolitis, POA. The plan is empiric antibiotics, Zosyn as well as a stool PCR. -- Stool PCR showed rotavirus as the cause of her diarrhea -- Conservative symptomatic treatment -- Continue IV fluids 100 cc/hr -- She may have dicyclomine 2. Ulcerative colitis flareup: -- As her blood cultures are negative to date, Imuran was started on 03/11. Discussed the case with both Dr. Hobbs local GI specialist and patient's GI specialist Dr. Verma at [facility]. They both agree on starting steroids at this time. Solu-Medrol 20 mg every 8 is ordered -- Every 4 hours H&H checks to make sure she is hemodynamically stable 2. Volume depletion, POA. Resuscitation with saline: We will continue IV fluids 3. Hypovolemic hyponatremia, POA. We will continue IV fluids 4. Metabolic acidosis, POA. Lactic acid is normal. IV fluids and follow. 5. Chronic ulcerative colitis, POA. The plan is as above. GI consultation was initiated in the emergency department. They initially recommended no steroids, they recommended Zosyn until blood cultures and negative. Hold Imuran until blood cultures are negative. -- May be able to discontinue antibiotics at this point -- Her GI specialist Dr. Verma says that once her abdominal pain is under control she usually gets discharged. 6. Remote history of methamphetamine abuse, inhalation. Remote history of alcohol abuse, none currently. 7. Primary sclerosing cholangitis, POA. Follow clinically.: Her home medication Imuran was restarted 8. GERD: Medication omeprazole replaced by pantoprazole 9. 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 Verma says that patient is expected to undergo a colectomy for this : She has been noncompliant with visits to his office to some extent. She is full resuscitation Inpatient status with estimated length of stay of over 2 nights. Patient may be able to discharge home in a day or 2 once her use UC flareup and diarrhea under control Pain Evaluation: Adequate Pain Control Resuscitation Status: CPR: Attempt Resuscitation Time spent 30 min Yarelis Estes DO March 12, 2017 11:54
[2017-03-12] MEDS: Albuterol 2.5 mg/3 mL Inhalation Solution NEB PRN (12:46)
--- NOTE | 2017-03-12 12:56 | NUR ---
BS clear, no wheezing,diminished in bases. Addendum: 03/12/17 at 1257 by MAYUR MISHRA [facility] Amended: Links added.
--- NOTE | 2017-03-12 15:29 | NUR ---
red stool pt states that her diarrhea is now red and foamy. This RN will notify MD and wait for orders.
[2017-03-12] MEDS: MethylprednisoLONE Sodium Succinate 40 mg/mL Inj IVPUSH SCH (16:10)
[2017-03-13] MEDS: Heparin 5,000 Unit/mL Inj SUBQ SCH ×3 (00:30→16:30)
[2017-03-13] MEDS: Piperacillin-Tazo 3.375 Gm Inj 3.375 GM in Dextrose 5% Minibag Plus 50 ML IV SCH ×3 (00:37→16:56)
[2017-03-13] MEDS: MethylprednisoLONE Sodium Succinate 40 mg/mL Inj IVPUSH SCH ×3 (00:37→16:57)
[2017-03-13] MEDS: Ondansetron 2 mg/mL 2 mL Inj IVPUSH PRN ×2 (03:12→14:44)
--- NOTE | 2017-03-13 03:20 | NUR ---
NOC shift Patient has reported continual diarrhea, yellow/brown in color, denies seeing any more blood in stool. Intermittent nausea, no emesis. Reported that she tolerated her dinner of salmon and rice. Snacking on crackers and ice chips overnight. Two doses of PRN Morphine given for pain of 6-7/10, effective. Vital signs stable. Patient is using call light for needs, calm and cooperative with care. Intentional rounding in place.
[2017-03-13 04:47] VITALS: BP 95/52; PULSE 74; RESP 18; O2SAT 97
[2017-03-13] MEDS: 0.9% Sodium Chloride 1,000 ML IV SCH ×2 (06:44→15:51)
[2017-03-13] MEDS: Pantoprazole 20 mg ER24 Tablet PO SCH (08:49)
[2017-03-13 09:24] VITALS: RESP 20; O2SAT 97
--- NOTE | 2017-03-13 10:20 | NUR ---
Social Work: Readiness for d/c Data: Pt is on day 3 of hospitalization. EMR reviewed, pt discussed in rounds. states pt likely ready for d/c tomorrow. No further d/c planning needs at this time. TOWER ERECTOR will continue to follow if needs arise. Assessment: Pt who is independent at baseline. Plan: Pt will d/c home via POV when medically stable. No further d/c planning needs at this time. TOWER ERECTOR will continue to follow if needs arise. INGE Ayoub
--- NOTE | 2017-03-13 10:36 | PCM.PNMED ---
Subjective Date of Service March 13, 2017 Subjective GI progress note 31-year-old female history of ulcerative colitis who presents with hematochezia and abdominal pain with confirmed rotavirus infection. Blood cultures initially negative and patient was restarted on Imuran and Solu-Medrol for UC flare. Patient states that her symptoms are greatly resolved, still having diarrhea without blood, and having nausea but no vomiting. All other review of systems is negative. Exam Vital Signs Vital Sign - Last Date Time Temp Pulse Resp B/P Pulse Ox O2 Delivery O2 Flow Rate FiO2 03/13/17 09:24 20 97 Room Air 03/13/17 04:47 36.9 74 95/52 Intake and Output 03/12/17 03/12/17 03/13/17 Cumulative From/Thru 15:00 23:00 07:00 03/10/17 12:14 - 03/13/17 03:14 Intake Total 1200 ml 2246 ml 857 ml 95101 ml Output Total 3500 ml Balance 1200 ml 2246 ml 857 ml 79165 ml Intake Oral 1200 ml 972 ml 5172 ml IV Total 1274 ml 857 ml 8519 ml Output Urine Total 500 ml Stool Total 3000 ml # Voids 5 4 11 # Bowel Movements 5 4 12 Exam General: Alert, Oriented X3, No Acute Distress Mouth: Mucous Membr Moist/[place] Chest & Lungs: Chest Wall Normal, Clear to auscultation & percussion Cardiovascular: Exam Unremarkable, Regular Rate/Rhythm Abdomen: mild epigastric, Non-distended Extremities: No cyanosis/clubbing/edma bilat Neurological: Grossly Neurologically Intact Lab and Diagnostics Result Diagram: 03/13/17 0810 03/12/17 0607 X-Rays, CTs and MRIs Chest x-ray is unremarkable except for a left base nodule. CT of the abdomen and pelvis: IMPRESSION: 1. Diffuse thickening of the wall of the entire colon with mild surrounding inflammation and fluid contained within the colon is suspicious for colitis. There is also thickening of the terminal ileum wall. These findings are concerning for a possible inflammatory bowel process, such as ulcerative colitis or Crohn's disease. However, clinical correlation to exclude infectious colitis such as pseudomembranous colitis is recommended. 2. No bowel obstruction. 3. Left adnexal/ovarian cyst. Please consider followup pelvic ultrasound in 2- 3 months. 4. Numerous subcentimeter retroperitoneal and mesenteric lymph nodes are likely reactive to the infectious/inflammatory process of the bowel. 4. Cholelithiasis. 5. Nonspecific intrahepatic biliary dilatation. This may be further evaluated better with MRCP. Dictated by: Pepe Smith M.D. on 03/10/2017 at 13:08 Approved by: Pepe Smith M.D. on 03/10/2017 at 13:25 Assessment & Plan 31-year-old female history of ulcerative colitis who presents with hematochezia and abdominal pain with confirmed rotavirus infection. Blood cultures initially negative and patient was restarted on Imuran and Solu-Medrol for UC flare. Plan: -Continue IV Solu-Medrol to complete a total of 3 days -Continue Imuran -At discharge patient should be started on prednisone 40mg, and continue till she sees her GI MD in [place] -Patient should follow-up with her GI doctor as well as her surgeon for evaluation and recommendations on her dysplasia. -Patient states her nausea is nontender controlled this time on the Zofran; recommend trying Reglan as the patient cannot take promethazine. Thank you for allowing us to participate in the care of this patient Resuscitation Status: CPR: Attempt Resuscitation Dewayne Huang DO March 13, 2017 10:36 Yolanda Mcfarlane MD March 14, 2017 16:16
[2017-03-13 10:43] VITALS: BP 104/69; PULSE 64; RESP 16; O2SAT 99
--- NOTE | 2017-03-13 17:15 | NUR ---
Abdominal Pain Continues to have c/o abdominal pain resolved with morphine IV. No emesis. Nausea controlled with IV antiemetic. Afebrile. Continue frequent rounding.
[2017-03-13 19:24] VITALS: PULSE 78; RESP 20; O2SAT 99
[2017-03-13] MEDS: Albuterol 2.5 mg/3 mL Inhalation Solution NEB PRN (19:24)
[2017-03-13 20:07] VITALS: BP 126/64; PULSE 106; RESP 16; O2SAT 98
--- NOTE | 2017-03-13 22:22 | PCM.PNMED ---
Subjective Date of Service March 13, 2017 Subjective Patient is seen and examined. She is teary-eyed after having a conversation with somebody at home, states that she had an argument. She is also set up about her medical predicament, worried about her upcoming colectomy. She does feel better with respect to her diarrhea and colitis states that her diarrhea has improved later in the day today. She denies fevers or chills. She is agreeable to trying oral pain medications instead of morphine tomorrow. Exam Vital Signs Vital Sign - Last Date Time Temp Pulse Resp B/P Pulse Ox O2 Delivery O2 Flow Rate FiO2 03/13/17 04:47 36.9 74 18 95/52 97 Room Air Intake and Output 03/12/17 03/12/17 03/13/17 Cumulative From/Thru 15:00 23:00 07:00 03/10/17 12:14 - 03/13/17 03:14 Intake Total 1200 ml 2246 ml 857 ml 93231 ml Output Total 3500 ml Balance 1200 ml 2246 ml 857 ml 73651 ml Intake Oral 1200 ml 972 ml 5172 ml IV Total 1274 ml 857 ml 8519 ml Output Urine Total 500 ml Stool Total 3000 ml # Voids 5 4 11 # Bowel Movements 5 4 12 Exam General: Mildly distressed HEENT: NCAT, Eyes: [place] conjunctivae. No ptosis, PERRL Neck: No masses, trachea midline, no thyromegaly Lungs: CTA with normal respiratory effort, no crackles or wheezes CV: RRR, no murmurs/rubs/gallops, normal PMI GI: Soft, tenderness over right upper quadrant and right lower quadrant and left lower quadrant with no hepatosplenomegaly MSK: Normal gait and station, no digital cyanosis Skin: Warm and dry. No rash, lesions or ulcers Psych: A&O X3, with appropriate affect IVs and Medications IV Fluids Decreased to 50 mL per hour normal saline Medications Reviewed: Medications were reviewed in detail Lab and Diagnostics Result Diagram: 03/13/17 0030 03/12/17 0607 X-Rays, CTs and MRIs Chest x-ray is unremarkable except for a left base nodule. CT of the abdomen and pelvis: IMPRESSION: 1. Diffuse thickening of the wall of the entire colon with mild surrounding inflammation and fluid contained within the colon is suspicious for colitis. There is also thickening of the terminal ileum wall. These findings are concerning for a possible inflammatory bowel process, such as ulcerative colitis or Crohn's disease. However, clinical correlation to exclude infectious colitis such as pseudomembranous colitis is recommended. 2. No bowel obstruction. 3. Left adnexal/ovarian cyst. Please consider followup pelvic ultrasound in 2- 3 months. 4. Numerous subcentimeter retroperitoneal and mesenteric lymph nodes are likely reactive to the infectious/inflammatory process of the bowel. 4. Cholelithiasis. 5. Nonspecific intrahepatic biliary dilatation. This may be further evaluated better with MRCP. Dictated by: Pepe Smith M.D. on 03/10/2017 at 13:08 Approved by: Pepe Smith M.D. on 03/10/2017 at 13:25 Assessment & Plan 1. Ulcerative colitis flareup: The plan is as above. GI consultation was initiated in the emergency department. They initially recommended no steroids, they recommended Zosyn until blood cultures and negative. Hold Imuran until blood cultures are negative. -- Her GI specialist Dr. Verma says that once her abdominal pain is under control she usually gets discharged. -- As her blood cultures are negative to date, Imuran was started on 03/11. Discussed the case with both Dr. Hobbs local GI specialist and patient's GI specialist Dr[facility]. They both agree on starting steroids at this time. Solu-Medrol 20 mg every 8 is ordered -- Every 4 hours H&H checks to make sure she is hemodynamically stable -- Currently pain controlled with morphine IV -9 was switched to by mouth pain meds 03/14 - 2. Diarrhea with evidence of diffuse pancolitis, POA. -- Stool PCR showed rotavirus as the cause of her diarrhea -- Conservative symptomatic treatment -- Continue IV fluids 100 cc/hr -- She may have dicyclomine -- discontinued Zosyn as there is no indication for it 3. Depression: Will consider fluoxetine 10 mg if he has no interactions with other medication she has on board: Will discuss with pharmacy 4. Hypothyroidism: was ruled out after second set is ordered. 5. Volume depletion, POA. Resuscitation with saline: -- Patient was tachycardic upon arrival to the ED thought to be due to dehydration -- We will continue IV fluids were decreased to 50 cc/hr 6. Hypovolemic hyponatremia, POA. Resolved after IV fluid hydration 7. Metabolic acidosis, POA. Lactic acid is normal. Resolved after IV fluid hydration 8. Chronic ulcerative colitis, POA. 9. Primary sclerosing cholangitis, POA. Follow clinically.: Her home medication Imuran was restarted 10. GERD: Medication omeprazole replaced by pantoprazole 11. 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 Verma says that patient is expected to undergo a colectomy for this : She has been noncompliant with visits to his office to some extent. 13. Remote history of methamphetamine abuse, inhalation. Remote history of alcohol abuse, none currently. She is full resuscitation Inpatient status with estimated length of stay of over 2 nights. Patient may be able to discharge home in a day or 2 once her use UC flareup and diarrhea under control. She thinks she will be well by Thursday Resuscitation Status: CPR: Attempt Resuscitation Time spent 25 min Yarelis Estes DO March 13, 2017 07:23
[2017-03-14] MEDS: Heparin 5,000 Unit/mL Inj SUBQ SCH ×2 (00:30→08:23)
[2017-03-14] MEDS: MethylprednisoLONE Sodium Succinate 40 mg/mL Inj IVPUSH SCH ×2 (00:42→08:20)
[2017-03-14] MEDS: Ondansetron 2 mg/mL 2 mL Inj IVPUSH PRN ×2 (00:54→08:19)
[2017-03-14 04:32] VITALS: BP 103/64; PULSE 7; PULSE 77; RESP 18; O2SAT 98
--- NOTE | 2017-03-14 05:53 | NUR ---
PAIN/NAUSEA Pt. continues to report abdominal cramping 6-06/04. PRN Bentyl x2 and Morphine x1 given during shift. Zofran given x1 pt. had no emesis. Afebriel. States having less frequent stools (no stools since 2100) and has not noted any blood. Pt. anxious regarding upcoming possible outpatient surgery. Pt. aware of anxiety, ambulated and tried to think about other things. Able to rest intermittently during shift. Nursing care ongoing.
[2017-03-14] MEDS: Pantoprazole 20 mg ER24 Tablet PO SCH (07:58)
[2017-03-14] MEDS: 0.9% Sodium Chloride 1,000 ML IV SCH (07:58)
[2017-03-14] MEDS: Albuterol 2.5 mg/3 mL Inhalation Solution NEB PRN (12:25)
[2017-03-14 12:26] VITALS: PULSE 75; RESP 18; O2SAT 98
[2017-03-14 13:22] VITALS: BP 122/66; PULSE 96; RESP 20; O2SAT 99
[2017-03-14] MEDS ORDERED: OXYC5TAB72 PO (14:32)
[2017-03-14] MEDS ORDERED: FLUO10CA20 PO (14:33)
--- NOTE | 2017-03-14 14:36 | PCM.DIMED ---
Discharge Instructions Date of Service March 14, 2017 Dates of Hospitalization March 10, 2017 at 16:53 Discharge Diagnosis Discharge Diagnosis rotavirus, ulcerative colitis, anxiety/depression Diet No restrictions Activity No restrictions Call your provider Fever or Chills, Shortness of breath, Bleeding, Chest pain, Vomitting, Excessive diarrhea, Weakness (unilateral), Other Patient Instructions Follow-up plan F/U with surgeon on thursday Pl see Dr. Bayron Green in 2 weeks. Please discuss anemia/iron infusion follow up with him Please see PCP in 2 weeks Yarelis Estes DO March 14, 2017 14:36
[2017-03-14] MEDS ORDERED: PRE20 PO (14:39)
--- NOTE | 2017-03-14 14:42 | NUR ---
Social Work: Discharge D: EMR reviewed. Pt is on day 4 of hospitalization. Pt to discharge home today via POV. SW does not anticipate any discharge needs. SW will continue to follow if needs arise. A: Pt who is independent at baseline. P: Pt to discharge home today via POV. SW does not anticipate any discharge needs. SW will continue to follow if needs arise. INGE Flores
--- NOTE | 2017-03-14 15:10 | NUR ---
Discharge Pt discharged home with boyfriend via private vehicle. Pt verbalized understanding of discharge, new Rx, and follow up instructions, personal belongings accounted for and left with pt.
--- NOTE | 2017-03-14 23:22 | PCM.DC.MED ---
Discharge Summary Date of Service March 14, 2017 Dates of Hospitalization Date of Hospital Admission March 10, 2017 at 16:53 Date of Discharge: March 14, 2017 Providers: Admitting Physician: Donovan Brooks MD [facility]ending Physician: Brigid Bradley DO Diagnosis at Time of Discharge Diagnosis at Time of Discharge rotavirus, ulcerative colitis, anxiety/depression Consultations GI Procedures XRay, CTs & MRIs Chest x-ray is unremarkable except for a left base nodule. CT of the abdomen and pelvis: IMPRESSION: 1. Diffuse thickening of the wall of the entire colon with mild surrounding inflammation and fluid contained within the colon is suspicious for colitis. There is also thickening of the terminal ileum wall. These findings are concerning for a possible inflammatory bowel process, such as ulcerative colitis or Crohn's disease. However, clinical correlation to exclude infectious colitis such as pseudomembranous colitis is recommended. 2. No bowel obstruction. 3. Left adnexal/ovarian cyst. Please consider followup pelvic ultrasound in 2- 3 months. 4. Numerous subcentimeter retroperitoneal and mesenteric lymph nodes are likely reactive to the infectious/inflammatory process of the bowel. 4. Cholelithiasis. 5. Nonspecific intrahepatic biliary dilatation. This may be further evaluated better with MRCP. Dictated by: Pepe Smith M.D. on 03/10/2017 at 13:08 Approved by: Pepe Smith M.D. on 03/10/2017 at 13:25 Brief History 31-year-old female who was diagnosed with ulcerative colitis while a teenager with history of it being treated with intermittent prednisone and mesalamine who was recently started on azathioprine by her office coordinator at the [facility] Dr Verma. She also reports that she has early colon cancer and has been scheduled to see colorectal surgery at the [facility]. She reportS that she has been in her usual state of health up until day of admission when she began having non bloody diarrhea and worsening of chronic abdominal pain. In the ER she tachycardic and hypotensive and therefore admitted to the hospital. She was started empirically on broad spectrum antibiotics and cultured. Stool studies were positive for rotavirus. Blood cultures are pending. Since admission she states she feels better, but still with watery diarrhea and abdominal pain that is more than here chronic abdominal pain. She states that all the kids that family have been sick with diarrhea. Patient states that the pain that she has had in her belly is consistent with her ulcerative colitis. Patient says that her symptoms have improved although there is still diarrhea.. Patient was seen to be tachycardic with borderline hypotension in the emergency department but this seems to have resolved with fluid resuscitation. Patient is usually seen at [facility] in [place] with her GI doctor, Dr. Verma, caring for her there. Patient's labs are reviewed currently no leukocytosis although there is a mild drop in the patient's hemoglobin; patient was hyponatremic this is resolved as currently hypokalemic. TSH is low at 0.319. Patient has a mild elevation alkaline phosphatase that resolved today Hospital Course 1. Ulcerative colitis flareup: The plan is as above. GI consultation was initiated in the emergency department. They initially recommended no steroids, they recommended Zosyn until blood cultures and negative. Hold Imuran until blood cultures are negative. -- Her GI specialist Dr. Verma says that once her abdominal pain is under control she usually gets discharged. -- As her blood cultures are negative to date, Imuran was started on 03/11. Discussed the case with both Dr. Hobbs local GI specialist and patient's GI specialist Dr. Vemra at [facility]. They both agree on starting steroids at this time. Solu-Medrol 20 mg every 8 is ordered -- Every 4 hours H&H checks to make sure she is hemodynamically stable -- Currently pain controlled with morphine IV - was switched to by mouth pain meds 03/14 - oxycodone PO 5 mg Q4HPRN --Patient stated she is feeling much better, well enough to go home. Will give prednisone for 5 days and pain medication as she has some pain still. 2. Diarrhea with evidence of diffuse pancolitis, POA. -- Stool PCR showed rotavirus as the cause of her diarrhea -- Conservative symptomatic treatment -- Continue IV fluids 100 cc/hr -- She may have dicyclomine -- discontinued Zosyn as there is no indication for it -- Improved on the day of discharge 3. Depression: -- She is started on Prozac, she is very appreciative of this 4. Hypothyroidism: was ruled out after second set is ordered. 5. Volume depletion, POA. Resuscitation with saline: -- Patient was tachycardic upon arrival to the ED thought to be due to dehydration -- We will continue IV fluids were decreased to 50 cc/hr 6. Hypovolemic hyponatremia, POA. Resolved after IV fluid hydration 7. Metabolic acidosis, POA. Lactic acid is normal. Resolved after IV fluid hydration 8. Chronic ulcerative colitis, POA. 9. Primary sclerosing cholangitis, POA. Follow clinically.: Her home medication Imuran was restarted 10. GERD: Medication omeprazole replaced by pantoprazole 11. 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 Verma says that patient is expected to undergo a colectomy for this : She has been noncompliant with visits to his office to some extent. 13. Remote history of methamphetamine abuse, inhalation. Remote history of alcohol abuse, none currently. Exam Vital Signs (Last) Date Time Temp Pulse Resp B/P Pulse Ox O2 Delivery O2 Flow Rate FiO2 03/14/17 13:22 36.7 96 20 122/66 99 Room Air Exam General: Mildly distressed HEENT: NCAT, Eyes: [place] conjunctivae. No ptosis, PERRL Neck: No masses, trachea midline, no thyromegaly Lungs: CTA with normal respiratory effort, no crackles or wheezes CV: RRR, no murmurs/rubs/gallops, normal PMI GI: Soft, mild tenderness over right upper quadrant and right lower quadrant and left lower quadrant with no hepatosplenomegaly MSK: Normal gait and station, no digital cyanosis Skin: Warm and dry. No rash, lesions or ulcers Psych: A&O X3, with appropriate affect Test 03/10/17 12:54 03/10/17 16:27 03/11/17 05:50 03/12/17 06:07 Lactic Acid Level 1.0mmol/L (0.4-2.0) Troponin T < 0.010ug/L (0.0-0.011) Lipase 10U/L (13-60) Urine Color Yellow (YELLOW) Urine Appearance Clear (CLEAR,HAZY) Urine pH 5.5 (5.0-8.0) Urine Specific [place] 1.010 (1.003-1.035) Urine Protein 30mg/dL (NEG,TRACE) Urine Glucose (UA) Negativemg/dL (NEGATIVE) Urine Ketones Negativemg/dL (NEGATIVE) Urine Occult Blood Negative (NEGATIVE) Urine Nitrite Negative (NEGATIVE) Urine Bilirubin Negative (NEGATIVE) Urine Urobilinogen Normalmg/dL (NORMAL) Urine Leukocyte Esterase Negative (NEGATIVE) Urine RBC 0-2/hpf (0-2) Urine WBC 0-5/hpf (0-5) Urine Epithelial Cells Many/hpf (NONE-MOD) Urine Crystals None seen (NONE SEEN) Urine Bacteria Many/hpf (NONE-FEW) Urine Hyaline Casts Occasional/lpf (NONE) Urine Granular Casts 5-20 (NONE SEEN) Urine Waxy Casts None seen (NONE SEEN) Urine Red Blood Cell Casts None seen (NONE SEEN) Urine White Blood Cell Casts None seen (NONE SEEN) Urine Mucus Present (None Seen) Urine Trichomonas None seen (NONE SEEN) Urine Yeast None (NONE SEEN) Urinalysis Comment None Urine Culture Reflexed Indicated White Blood Count 6.8th/mm3 (3.8-10.1) Red Blood Count 3.90mil/mm3 (3.90-5.20) Mean Corpuscular Volume 86.9fL (81-100) Mean Corpuscular Hemoglobin 28.5pg (27.0-35.0) Mean Corpuscular Hemoglobin Concent 32.7% (32.0-37.0) Red Cell Distribution Width 15.9% (12.3-15.4) Platelet Count 541bil/L (150-400) Neutrophils (%) (Auto) 58.9% (40-74) Lymphocytes (%) (Auto) 26.8% (14-46) Monocytes (%) (Auto) 9.7% (4-12) Eosinophils (%) (Auto) 4.1% (0-5) Basophils (%) (Auto) 0.4% (0-3) Total Bilirubin 0.3mg/dL (0.0-1.2) Aspartate Amino Transf (AST/SGOT) 19U/L (0-50) Alanine Aminotransferase (ALT/SGPT) 12U/L (0-32) Alkaline Phosphatase 135U/L (25-150) Total Protein 6.3g/dL (6.4-8.4) Albumin 3.1g/dL (3.4-5.0) Sodium Level 136mEq/L (134-144) Potassium Level 3.6mEq/L (3.5-5.2) Chloride Level 102mEq/L (97-108) Carbon Dioxide Level 19mmol/L (18-29) Blood Urea Nitrogen 6mg/dL (6-20) Creatinine 0.51mg/dL (0.57-1.00) Estimat Glomerular Filtration Rate 201mL/min (>59) Glucose Level 96mg/dL (60-99) Calcium Level 8.1mg/dL (8.5-10.1) Magnesium Level 1.9mg/dL (1.6-2.6) Thyroid Stimulating Hormone (TSH) 1.030uIU/mL (0.450-4.500) Free Thyroxine 1.25ng/dL (0.82-1.77) Test 03/13/17 16:02 Hemoglobin 10.6g/dL (12.0-15.6) Hematocrit 32.4% (35.0-46.0) Discharge Medications Discharge Medications Azathioprine (Imuran) 50 Mg Tablet 100 MG PO QAM (Reported) Fluoxetine (Fluoxetine) 10 Mg Capsule 10 MG PO DAILY Prescribed by: YARELIS IRBY DO Omeprazole (Omeprazole) 20 Mg Capsule.dr 20 MG PO QAM (Reported) Prednisone (PredniSONE) 20 Mg Tablet 40 MG PO DAILY Prescribed by: YARELIS IRBY DO As needed Acetaminophen (Acetaminophen) 500 Mg Tablet 500 MG PO Q6H PRN PRN For Fever ( Reported) Albuterol HFA (Proair HFA) 8.5 Gm Hfa.aer.ad 2 PUFFS INHALATION Q4H PRN PRN For Shortness of Breath (Reported) Dicyclomine (Dicyclomine) 20 Mg Tablet 40 MG PO QID PRN PRN For GI Cramps ( Reported) Loratadine (Claritin) 10 Mg Capsule 10 MG PO DAILY PRN PRN ALLERGIES (Reported) oxyCODONE (oxyCODONE) 5 Mg Tablet 5 MG PO Q4H PRN PRN For Moderate Pain Prescribed by: YARELIS IRBY DO Followup Plan Follow-up plan F/U with surgeon on thursday Pl see Dr. Bayron Green in 2 weeks. Please discuss anemia/iron infusion follow up with him Please see PCP in 2 weeks Discharge Diet: No restrictions Discharge Activity: No restrictions Time spent 40 min Yarelis Irby DO March 14, 2017 23:22
== END 2017-03-14 15:06 | disposition home or self-care (01) | DRG 386 ==
LOC: SED 12:09 → MPC 16:53
PROVIDERS: ADMIT Hospitalist; ATTEND Hospitalist
DX: K51.90 Ulcerative colitis, unspecified, without complications (principal); E87.1 Hypo-osmolality and hyponatremia; K83.0 Cholangitis; E87.2 Acidosis; E86.0 Dehydration; K21.9 Gastro-esophageal reflux disease without esophagitis; K51.00 Ulcerative (chronic) pancolitis without complications; J45.909 Unspecified asthma, uncomplicated; F17.200 Nicotine dependence, unspecified, uncomplicated; F32.9 Major depressive disorder, single episode, unspecified; Z79.51 Long term (current) use of inhaled steroids; Z91.19 Patient's noncompliance with other medical treatment and regimen